=== PATIENT | male | born 1950 | race Caucasian/White ===

== ENCOUNTER 2024-12-08 01:20 | Inpatient (IN) | payer MEDICARE, OTHER ==
[~2024-12-08] VITALS: Ht 175.3 cm; Wt 68.0 kg
[2024-12-08 02:18] LABS: BASOPHILS # (AUTO) 0.1 K/uL (0.0-0.2); BASOPHILS % (AUTO) 0.6 % (0.0-2.0); EOSINOPHILS # (AUTO) 0.7 K/uL (0.0-0.7); EOSINOPHILS % (AUTO) 8.1 % (0.0-6.0); HEMATOCRIT 36 % (39-51); LYMPHOCYTES # (AUTO) 2.2 K/uL (0.8-4.8); LYMPHOCYTES % (AUTO) 25.3 % (20.0-44.0); MEAN CORPUSCULAR HEMOGLOBIN 31 PG (26.0-33.0); MEAN CORPUSCULAR HGB CONC 34 g/dl (31.0-36.0); MEAN CORPUSCULAR VOLUME 90 fL (80-96); MONOCYTES # (AUTO) 0.7 K/uL (0.1-1.30); MONOCYTES % (AUTO) 7.9 % (2.0-12.0); NEUTROPHILS # (AUTO) 5.1 K/uL (1.8-8.9); NEUTROPHILS % (AUTO) 58.1 % (43.0-81.0); PLATELET COUNT (AUTO) 278 K/uL (150-450); RED BLOOD CELL COUNT(AUTO) 3.95 MIL/uL (4.5-6.0); RED CELL DISTRIBUTION WIDTH 14.8 % (11.5-15.0); WHITE BLOOD COUNT (AUTO) 8.7 K/uL (4.3-11.0)
[2024-12-08 02:30] LABS: AMPHETAMINE, URINE NEGATIVE (NEGATIVE); BARBITURATE, URINE NEGATIVE (NEGATIVE); BENZODIAZEPINE, URINE NEGATIVE (NEGATIVE); CANNABINOID, URINE NEGATIVE (NEGATIVE); COCCAINE, URINE NEGATIVE (NEGATIVE); OPIATE, URINE NEGATIVE (NEGATIVE); PHENCYCLIDINE SCREEN,URINE NEGATIVE (NEGATIVE)
[2024-12-08 02:30] LABS: ALANINE AMINOTRANSFERASE 21 U/L (12-78); ALBUMIN 3.8 g/dL (3.4-5.0); ALCOHOL, BLOOD < 3 mg/dL (0-10); ALKALINE PHOSPHATASE 136 U/L (46-116); ASPARTATE AMINOTRANSFERASE 22 U/L (15-37); BILIRUBIN,DIRECT 0.1 mg/dL (0.0-0.2); BILIRUBIN,TOTAL 0.3 mg/dL (0.2-1.0); CALCIUM, SERUM 9.5 mg/dL (8.5-10.1); CARBON DIOXIDE 31 mmol/L (21-32); CHLORIDE 103 mmol/L (98-107); CREATININE 1.2 mg/dL (0.6-1.3); GLUCOSE 92 mg/dL (74-106); POTASSIUM 4.4 mmol/L (3.5-5.1); SALICYLATE 2.6 mg/dL (2.8-20.0); SODIUM SERUM 141 mmol/L (136-145); TOTAL PROTEIN, SERUM 9.9 g/dL (6.4-8.2); UREA NITROGEN, BLOOD 31 mg/dL (7-18)
[2024-12-08 02:31] LABS: ACETAMINOPHEN <10 ug/ml (10-30)
[2024-12-08 02:38] LABS: APPEARANCE,URINE CLOUDY (CLEAR); BILIRUBIN,URINE NEGATIVE (NEGATIVE); BLOOD, URINE 2+ Ery/uL (NEGATIVE); COLOR,URINE YELLOW (YELLOW); KETONES,URINE NEGATIVE (NEGATIVE); LEUKOCYTE ESTERASE ,URINE 3+ (NEGATIVE); NITRITE, URINE POSITIVE (NEGATIVE); PROTEIN,URINE NEGATIVE (NEGATIVE); UGLUCOSE NEGATIVE (NEGATIVE); UROBILINOGEN,URINE 0.2 EU/dL (0.2)
[2024-12-08 02:41] LABS: ADD URINE CULTURE YES; BACTERIA,URINE Moderate /HPF (None Seen); SQUAMOUS EPITHELIAL CELL,UR Few /HPF (None Seen); WBC,URINE 51-80 /HPF (0-3)
[2024-12-08] MEDS ORDERED: CIPROFLOXACIN HCL 500 MG TABLET ONE (03:10)
[2024-12-08] MEDS: CIPROFLOXACIN HCL 500 MG TABLET PO ONE (03:13)
[2024-12-08] MEDS ORDERED: RISP1TAB97 PO (05:31)
[2024-12-08] MEDS ORDERED: ACET325C7 PO (05:31)
[2024-12-08] MEDS ORDERED: RISP2TAB85 PO (05:31)
[2024-12-08] MEDS ORDERED: MAGNESIUM HYDROXIDE 30 ML UDC PO PRN (06:30)
[2024-12-08] MEDS ORDERED: TEMAZEPAM 7.5 MG CAPSULE PO PRN ×2 (06:30)
[2024-12-08] MEDS ORDERED: ACETAMINOPHEN 325 MG TABLET PO PRN (06:30)
[2024-12-08] MEDS ORDERED: clonazePAM 0.5 MG TABLET PO PRN ×2 (06:30)
[2024-12-08] MEDS ORDERED: MAG HYDROX/AL HYDROX/SIMETH 30 ML UDC PO PRN (06:30)
[2024-12-08] MEDS: BLOOD SUGAR DIAGNOSTIC 1 EACH STRIP IN ONE (07:28)
[2024-12-08 08:00] VITALS: BP 100/70; TEMP 97.7; O2SAT 95
[2024-12-08] MEDS: risperiDONE 1 MG TABLET PO SCH (09:00)
[2024-12-08 16:00] VITALS: BP 106/61; TEMP 97.7; O2SAT 98
[2024-12-08 20:04] VITALS: BP 98/60; TEMP 97.6; O2SAT 98
[2024-12-09 02:27] VITALS: BP 98/60; TEMP 97.6
[2024-12-09] MEDS: CEPHALEXIN MONOHYDRATE 250 MG/5 ML BOTTLE PO SCH (05:00)
[2024-12-09] MEDS: CEPHALEXIN MONOHYDRATE 500 MG CAPSULE PO SCH (06:00)
[2024-12-09 07:40] LABS: BASOPHILS % (AUTO) 0.6 % (0.0-2.0); EOSINOPHILS # (AUTO) 0.5 K/uL (0.0-0.7); EOSINOPHILS % (AUTO) 9.8 % (0.0-6.0); HEMATOCRIT 40 % (39-51); HEMOGLOBIN 13.4 g/dL (13.5-17.5); LYMPHOCYTES # (AUTO) 1.2 K/uL (0.8-4.8); LYMPHOCYTES % (AUTO) 24.5 % (20.0-44.0); MEAN CORPUSCULAR HEMOGLOBIN 30 PG (26.0-33.0); MEAN CORPUSCULAR HGB CONC 34 g/dl (31.0-36.0); MEAN CORPUSCULAR VOLUME 90 fL (80-96); MONOCYTES # (AUTO) 0.4 K/uL (0.1-1.30); MONOCYTES % (AUTO) 8.6 % (2.0-12.0); NEUTROPHILS # (AUTO) 2.9 K/uL (1.8-8.9); NEUTROPHILS % (AUTO) 56.5 % (43.0-81.0); PLATELET COUNT (AUTO) 197 K/uL (150-450); RED BLOOD CELL COUNT(AUTO) 4.43 MIL/uL (4.5-6.0); RED CELL DISTRIBUTION WIDTH 14.9 % (11.5-15.0); WHITE BLOOD COUNT (AUTO) 5.1 K/uL (4.3-11.0)
[2024-12-09 07:52] LABS: CALCIUM, SERUM 9.1 mg/dL (8.5-10.1); CREATININE 1.1 mg/dL (0.6-1.3); POTASSIUM 4.5 mmol/L (3.5-5.1)
[2024-12-09] MEDS: CEFTRIAXONE 1 G VIAL IM SCH (12:41)
[2024-12-10 08:00] VITALS: BP 105/68; TEMP 98.7; O2SAT 100
[2024-12-10 16:00] VITALS: BP 100/68; TEMP 97.8; O2SAT 100
[2024-12-10] MEDS ORDERED: LORAZEPAM 0.5 MG TABLET PO PRN (19:00)
[2024-12-11 08:00] VITALS: BP 87/60; TEMP 97.7; O2SAT 97
[2024-12-11] MEDS: OLANZAPINE 10 MG VIAL IM ONE (11:19)
[2024-12-11 15:56] VITALS: BP 106/71; TEMP 97.9; O2SAT 96
[2024-12-11 21:29] VITALS: BP 83/59; TEMP 98.1; O2SAT 99
[2024-12-11 23:00] VITALS: BP 99/64; TEMP 98; O2SAT 97
[2024-12-12 08:00] VITALS: BP 100/76; TEMP 98.6; O2SAT 99
[2024-12-12 16:00] VITALS: BP 97/60; TEMP 97.7; O2SAT 98
[2024-12-12] MEDS: OLANZAPINE 10 MG VIAL IM STA (18:51)
[2024-12-12 20:00] VITALS: BP 101/70; TEMP 98; O2SAT 97
[2024-12-12 20:34] VITALS: BP 101/70; TEMP 98; O2SAT 97
[2024-12-13] MEDS: risperiDONE 1 MG TABLET PO SCH (14:30)
[2024-12-13] MEDS: OLANZAPINE 10 MG VIAL IM PRN (15:19)
[2024-12-13 16:00] VITALS: BP 108/66; TEMP 98; O2SAT 100
[2024-12-13 21:44] VITALS: BP 93/80; TEMP 98.2; O2SAT 98
[2024-12-14] MEDS ORDERED: OLANZAPINE 10 MG VIAL IM PRN ×2 (10:30)
[2024-12-14 16:00] VITALS: BP 97/60; TEMP 97.5; O2SAT 96
[2024-12-14] MEDS: risperiDONE 1 MG TABLET PO SCH ×2 (16:30→21:47)
[2024-12-14 20:45] VITALS: BP 109/79; TEMP 97.9; O2SAT 100
[2024-12-15 08:00] VITALS: BP 104/75; TEMP 97.8; O2SAT 97
[2024-12-15 16:00] VITALS: BP 100/67; TEMP 98.1; O2SAT 99
[2024-12-15 20:04] VITALS: BP 107/62; TEMP 97.9; O2SAT 98
[2024-12-16 08:00] VITALS: BP 104/68; TEMP 97.8; O2SAT 100
[2024-12-16 16:00] VITALS: BP 99/84; TEMP 97.6; O2SAT 97
[2024-12-16 20:25] VITALS: BP 99/62; TEMP 97.8; O2SAT 100
[2024-12-17 08:00] VITALS: BP 100/60; TEMP 98.1; O2SAT 96
[2024-12-17] MEDS: risperiDONE 1 MG TABLET PO SCH (13:43)
[2024-12-17 16:00] VITALS: BP 100/69; TEMP 97.9; O2SAT 98
[2024-12-17 20:00] VITALS: BP 77/55; TEMP 97.9; O2SAT 97
[2024-12-17 22:37] VITALS: BP 104/65; TEMP 97.9; O2SAT 97
[2024-12-18 08:00] VITALS: BP 113/71; TEMP 98.6; O2SAT 96
[2024-12-18 16:00] VITALS: BP 94/60; TEMP 97.7; O2SAT 97
[2024-12-18] MEDS: risperiDONE 1 MG TABLET PO SCH ×2 (17:00→21:21)
[2024-12-18 20:39] VITALS: BP 122/84; TEMP 98.6; O2SAT 98
[2024-12-19 08:09] VITALS: BP 100/59; TEMP 97.8; O2SAT 100
[2024-12-19 16:06] VITALS: BP 110/72; TEMP 98.3; O2SAT 95
[2024-12-19 20:00] VITALS: BP 97/65; TEMP 97.9; O2SAT 96
[2024-12-20 08:00] VITALS: BP 119/80; TEMP 97.9; O2SAT 95
[2024-12-20 16:00] VITALS: BP 93/67; TEMP 98; O2SAT 97
[2024-12-20 20:00] VITALS: BP_SYST 125; BP_SYST 80; BP_DIAS 57; BP_DIAS 78; TEMP 97.8; O2SAT 97
[2024-12-21 08:00] VITALS: BP 123/79; TEMP 98.4; O2SAT 94
== END 2024-12-21 13:25 | DRG 885 ==
LOC: ER 01:38 → GPS 03:46
PROVIDERS: ADMIT Psychiatry & Neurology Psychosomatic Medicine; ATTEND Nurse Practitioner Acute Care
DX: F20.9 Schizophrenia, unspecified (principal); G93.41 Metabolic encephalopathy; N39.0 Urinary tract infection, site not specified; F03.918 Unspecified dementia, unspecified severity, with other behavioral disturbance; F03.911 Unspecified dementia, unspecified severity, with agitation; I69.351 Hemiplegia and hemiparesis following cerebral infarction affecting right dominant side; F03.94 Unspecified dementia, unspecified severity, with anxiety; K21.9 Gastro-esophageal reflux disease without esophagitis; D64.9 Anemia, unspecified; B96.89 Other specified bacterial agents as the cause of diseases classified elsewhere; F41.9 Anxiety disorder, unspecified; Z91.148 Patient's other noncompliance with medication regimen for other reason; Z53.20 Procedure and treatment not carried out because of patient's decision for unspecified reasons
CPT/HCPCS: 36415; 80048-TC; 80061-TC; 80076-TC; 81001; 85025-TC; 87086-TC; 98960; G0480; J0696; J3490